=== PATIENT | female | born 1965 | race American Indian/Alaskan Native ===

== ENCOUNTER 2020-07-06 11:08 | Emergency (ER) | payer SELFPAY ==
[2020-07-06 11:22] VITALS: BP 162/97
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
== END 2020-07-06 13:32 | disposition home or self-care (01) ==
LOC: ED 11:08
DX: S50.11XA Contusion of right forearm, initial encounter (principal); H54.7 Unspecified visual loss; V89.2XXA Person injured in unspecified motor-vehicle accident, traffic, initial encounter; Y93.89 Activity, other specified; Y92.89 Other specified places as the place of occurrence of the external cause; Y99.8 Other external cause status
CPT/HCPCS: 99282